=== PATIENT | female | born 1975 | race Asian ===

== ENCOUNTER 2016-12-09 09:18 | Emergency (ER) | payer OTHER, MEDICAID ==
[~2016-12-09] VITALS: Ht 160 cm; Wt 43.5 kg
[~2016-12-09 09:18] MED LIST: ACET-1600 PO; CEFD300C37 PO; CIPR500T87 PO; FERR325T20 PO; LEVO250T23 PO; OXYC-302 PO; OXYC5TAB3 PO; POTA10TA17 PO; SODI325T PO; SODI454P PO; SULF1TAB24 PO; TAMS-11 PO; TAMS0.4C2 PO; TRAM50TA2 PO
[2016-12-09] MEDS ORDERED: KETOROLAC 30 MG/1 ML IVPush ONE (10:00)
[2016-12-09] MEDS ORDERED: SODIUM CHLORIDE 0.9% 1,000ML IV ONE (10:00)
[2016-12-09] MEDS ORDERED: ONDANSETRON 2MG/ML, 2ML IVPush ONE (10:00)
[2016-12-09 10:12] LABS: ASPARTATE AMINO TRANSFERASE 15 U/L (15-37); BLOOD UREA NITROGEN 16 mg/dL (7-18)
[2016-12-09] MEDS ORDERED: ONDANSETRON 2MG/ML, 2ML ONE (10:48)
[2016-12-09] MEDS ORDERED: KETOROLAC 30 MG/1 ML ONE (10:48)
[2016-12-09 11:35] VITALS: BP 108/69
== END 2016-12-09 13:06 | disposition home or self-care (01) ==
LOC: ED 11:04
DX: N20.1 Calculus of ureter (principal); N20.0 Calculus of kidney; Z87.442 Personal history of urinary calculi
CPT/HCPCS: 36415; 74000; 76770; 80053; 81001; 84703; 85025; 87086; 96361; 96374; 96375; 99285; J1885; J2405; J7030